=== PATIENT | male | born 1975 | race Caucasian/White ===

== ENCOUNTER 2023-02-22 22:37 | Emergency (ER) | payer SELFPAY ==
[~2023-02-22] VITALS: Ht 193 cm; Wt 83.0 kg
[2023-02-22 22:42] VITALS: BP 150/96; PULSE 90; RESP 16; TEMP 98.4; O2SAT 98
== END 2023-02-23 | disposition left against medical advice (07) ==
LOC: ER 22:37
DX: Z53.21 Procedure and treatment not carried out due to patient leaving prior to being seen by health care provider (principal)
CPT/HCPCS: 99281